=== PATIENT | male | born 1950 | race African-American/Black ===

== ENCOUNTER 2024-03-20 12:24 | Emergency (ER) | payer OTHER ==
[~2024-03-20] VITALS: Ht 154.9 cm; Wt 55.6 kg
[2024-03-20] MEDS ORDERED: SODIUM CHLORIDE 0.9% 500 ML IV ONE (15:30)
[2024-03-20 16:38] LABS: BASOPHILS 1.1 % (0-2); EOSINOPHILS 1.9 % (0-6); HEMATOCRIT 42.7 % (35.0-50.0); HEMOGLOBIN 13.9 g/dL (12.0-18.0); LYMPHOCYTES 26.5 % (24-44); MCH 27.2 (27-36); MCHC 32.6 g/dl (30-36); MCV 83.4 fl (81-99); MONOCYTES 10.1 % (0-12); NEUTROPHILS 60.4 % (39-80); PLATELET COUNT 282 K/uL (140-440); RBC 5.12 M/ul (4.3-5.7); RDW 15.4 (10.5-15.0)
[2024-03-20 18:25] LABS: ALBUMIN 2.9 g/dL (3.4-5.0); ALBUMIN/GLOBULIN RATIO 0.76 (1.1-2.4); ANION GAP 11.3 (7-21); BILIRUBIN, TOTAL 0.5 ng/dL (0.2-1.0); BUN/CREATININE RATIO 8.92 (6.0-28.6); CALCIUM 8.6 mg/dL (8.5-10.1); CREATININE, SERUM 1.12 mg/dL (0.70-1.30); POTASSIUM 4.3 mmol/L (3.5-5.1); PROTEIN, TOTAL 6.7 g/dL (6.4-8.2)
[2024-03-20 18:40] VITALS: BP 128/72
== END 2024-03-20 18:40 | disposition home or self-care (01) ==
LOC: ED 12:24
PROVIDERS: Emergency Medicine
DX: R22.1 Localized swelling, mass and lump, neck (principal); R59.0 Localized enlarged lymph nodes
CPT/HCPCS: 36415; 70491; 71045; 80053; 85025; 99284-25; J7040